=== PATIENT | male | born 1980 | race Caucasian/White ===

== ENCOUNTER 2020-08-05 20:44 | Inpatient (IN) | payer OTHER, SELFPAY ==
[2020-08-05 21:39] LABS: Absolute Lymphocytes (CBC) 2.6 K/uL (0.7-4.9); Basophils % 0.8 % (0-1.3); Hematocrit 44.9 % (39.6-49.0); Lymphocytes % 31.7 % (15.3-44.8); MPV 7.4 fL (7.6-11.3); RBC Red Blood Cell Count 5.13 M/uL (4.33-5.43)
[2020-08-05 21:47] LABS: Protime INR 0.87
[2020-08-05] MEDS ORDERED: NA CHLORIDE 0.9% 1,000 ML ONE (21:54)
[2020-08-05 22:07] LABS: ALT/SGPT 120 U/L (12-78); AST/SGOT 77 U/L (15-37); Albumin 3.3 g/dL (3.4-5.0); Alkaline Phosphatase 70 U/L (45-117); BUN Blood Urea Nitrogen 5 mg/dL (7-18); Bicarbonate 30 mmol/L (21-32); Bilirubin Direct < 0.1 mg/dL (0-0.2); Bilirubin Total 0.2 mg/dL (0.2-1.0); Glucose Level 98 mg/dL (74-106); Potassium 3.5 mmol/L (3.5-5.1); Protein, Total 7.2 g/dL (6.4-8.2); Sodium Level 143 mmol/L (136-145)
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
--- NOTE | 2020-08-05 22:34 | EDPHYS ---
Physician Documentation [facility] Name: Roscoe Mckeon Age: 39 yrs Sex: Male : 1980 Arrival Date: 08/05/2020 Time: 20:45 Bed 7 Private MD: NELSON Physician Krishan Horner HPI: 08/05 22:17 This 39 yrs old Male presents to ER via Ambulatory with complaints of Psych wu Problem. 22:17 The patient presents to the emergency department with depression, a history of wu substance abuse. Onset: The symptoms/episode began/occurred just prior to arrival. Past psychiatric history: Prior diagnosis: depression. Associated signs and symptoms: The patient has no apparent associated signs or symptoms. Severity of symptoms: At their worst the symptoms were mild in the emergency department the symptoms are unchanged. The patient has not experienced similar symptoms in the past. Historical: - Allergies: 20:57 No Known Allergies; ll1 - PMHx: 20:57 head trauma; ll1 21:07 aphasia; ll1 - PSHx: 20:57 None; ll1 - Immunization history:: Flu vaccine is up to date. - Social history:: Smoking status: Patient reports the use of cigarette tobacco products, smokes one-half pack cigarettes per day. - Family history:: not pertinent. ROS: 22:17 Constitutional: Negative for fever, chills, and weight loss, Eyes: Negative for injury, wu pain, redness, and discharge, ENT: Negative for injury, pain, and discharge, Neck: Negative for injury, pain, and swelling, Cardiovascular: Negative for chest pain, palpitations, and edema, Respiratory: Negative for shortness of breath, cough, wheezing, and pleuritic chest pain, Abdomen/GI: Negative for abdominal pain, nausea, vomiting, diarrhea, and constipation, Back: Negative for injury and pain, : Negative for injury, bleeding, discharge, and swelling, MS/Extremity: Negative for injury and deformity, Skin: Negative for injury, rash, and discoloration, Allergy/Immunology: Negative for hives, rash, and allergies, Endocrine: Negative for neck swelling, polydipsia, polyuria, polyphagia, and marked weight changes, Hematologic/Lymphatic: Negative for swollen nodes, abnormal bleeding, and unusual bruising. 22:17 Neuro: Positive for seizure activity. 22:17 Psych: Positive for depression, suicidal ideation. Exam: 22:17 Constitutional: This is a well developed, well nourished patient who is awake, alert, wu and in no acute distress. Head/Face: Normocephalic, atraumatic. Eyes: Pupils equal round and reactive to light, extra-ocular motions intact. Lids and lashes normal. Conjunctiva and sclera are non-icteric and not injected. Cornea within normal limits. Periorbital areas with no swelling, redness, or edema. ENT: Nares patent. No nasal discharge, no septal abnormalities noted. Tympanic membranes are normal and external auditory canals are clear. Oropharynx with no redness, swelling, or masses, exudates, or evidence of obstruction, uvula midline. Mucous membranes moist. Neck: Trachea midline, no thyromegaly or masses palpated, and no cervical lymphadenopathy. Supple, full range of motion without nuchal rigidity, or vertebral point tenderness. No Meningismus. Chest/axilla: Normal chest wall appearance and motion. Nontender with no deformity. No lesions are appreciated. Cardiovascular: Regular rate and rhythm with a normal S1 and S2. No gallops, murmurs, or rubs. Normal PMI, no JVD. No pulse deficits. Respiratory: Lungs have equal breath sounds bilaterally, clear to auscultation and percussion. No rales, rhonchi or wheezes noted. No increased work of breathing, no retractions or nasal flaring. Abdomen/GI: Soft, non-tender, with normal bowel sounds. No distension or tympany. No guarding or rebound. No evidence of tenderness throughout. Back: No spinal tenderness. No costovertebral tenderness. Full range of motion. Male : Normal genitalia with no discharge or lesions. Skin: Warm, dry with normal turgor. Normal color with no rashes, no lesions, and no evidence of cellulitis. MS/ Extremity: Pulses equal, no cyanosis. Neurovascular intact. Full, normal range of motion. Psych: Awake, alert, with orientation to person, place and time. Behavior, mood, and affect are within normal limits. 22:17 Neuro: Orientation: is normal, appropriate for stated age, no acute changes, Mentation: is normal, appropriate for stated age, no acute changes, Memory: is normal, appropriate for stated age, no acute changes, seizure activity, grand mal type is displayed, in er out of meds x 2 weeks, no post ictal state. Vital Signs: 20:55 BP 143 / 107; Pulse 110; Resp 18; Temp 98.3; Pulse Ox 100% ; Height 6 ft. 2 in. (187.96 ll1 cm); Pain 0/10; 22:15 BP 139 / 87; Pulse 98; Resp 22; Pulse Ox 95% on R/A; jb4 MDM: 21:00 Patient medically screened. wu 21:00 Patient medically screened. wu 22:20 Differential diagnosis: drug withdrawal. acute psychotic break, depression. Data wu reviewed: vital signs, nurses notes, lab test result(s), EKG, radiologic studies, CT scan, plain films. Data interpreted: desk monitor: rate is 110 beats/min, rhythm is regular, Pulse oximetry: on room air. Test interpretation: by ED physician or midlevel provider: ECG, plain radiologic studies. Counseling: I had a detailed discussion with the patient and/or guardian regarding: the historical points, exam findings, and any diagnostic results supporting the discharge/admit diagnosis, lab results, radiology results. 08/05 21:01 Order name: Acetaminophen; Complete Time: 22:16 [facility] 08/05 21:01 Order name: Basic Metabolic Panel; Complete Time: 22:16 [facility] 08/05 21:01 Order name: CBC with Diff; Complete Time: 22:16 [facility] 08/05 21:01 Order name: ETOH Level; Complete Time: 22:16 [facility] 08/05 21:01 Order name: Hepatic Function; Complete Time: 22:16 [facility] 08/05 21:01 Order name: PT-INR; Complete Time: 22:16 [facility] 08/05 21:01 Order name: Ptt, Activated; Complete Time: 22:16 [facility] 08/05 21:01 Order name: Salicylate; Complete Time: 22:16 [facility] 08/05 21:01 Order name: Urine Drug Screen [facility] 08/05 23:12 Order name: Comprehensive Metabolic Panel [facility] 08/05 23:12 Order name: Comprehensive Metabolic Panel [facility] 08/05 23:12 Order name: CBC with Automated Diff [facility] 08/05 23:12 Order name: CBC with Automated Diff [facility] 08/05 23:37 Order name: COVID-19 : Document "Date of Symptom Onset" if Symptomatic. [email or web address] 08/05 21:01 Order name: EKG; Complete Time: 21:02 [facility] 08/05 21:01 Order name: EKG - Nurse/Tech; Complete Time: 22:37 [facility] 08/05 21:01 Order name: IV Saline Lock; Complete Time: 22:37 [facility] 08/05 21:01 Order name: Labs collected and sent; Complete Time: 22:37 [facility] 08/05 21:01 Order name: Urine Dipstick-Ancillary (obtain specimen); Complete Time: 22:37 [facility] 08/05 22:17 Order name: Seizure Precautions; Complete Time: 22:19 [facility] 08/05 22:21 Order name: CT Head Brain wo Cont [facility] 08/05 23:12 Order name: CONS Pharmacy Consult; Complete Time: 08:02 EDMS 08/05 23:12 Order name: Regular; Complete Time: 08:02 [facility]VA 08/06 00:45 Order name: Urine Dipstick--Ancillary (enter results) 2 08/06 00:50 Order name: Urine Dipstick-Ancillary EDMS 08/06 02:40 Order name: SARS-COV-2 RT PCR EDMS Administered Medications: 21:45 Drug: NS 0.9% 1000 ml Route: IV; Rate: 1 bolus; Site: right antecubital; jb4 22:45 Follow up: Response: No adverse reaction; IV Status: Completed infusion; IV Intake: jb4 1000ml 22:30 Drug: Ativan 1 mg Route: IVP; Site: right antecubital; jb4 23:00 Follow up: Response: No adverse reaction; Marked relief of symptoms jb4 22:30 Drug: Fosphenytoin 1 grams Route: IVPB; Site: right antecubital; jb4 22:45 Follow up: Response: No adverse reaction; IV Status: Completed infusion; IV Intake: [id number] 23:15 Drug: Thiamine 100 mg Route: IV; Rate: bolus; Site: right antecubital; jb4 23:20 Follow up: IV Status: Completed infusion; IV Intake: 10ml jb4 Disposition: 08/05/20 22:34 Hospitalization ordered by Adalberto Gilliam for Observation. Preliminary diagnosis are Major depressive disorder, recurrent, Aphasia - from remote [facility], Alcohol abuse with intoxication, Epilepsy and recurrent seizures. - Bed requested for Telemetry/MedSurg (Inpatient). - Status is Observation. sv - Condition is Fair. - Problem is new. - Symptoms have improved. Signatures: Dispatcher [employer] Preeti Frias RN HARJINDER sv Virginia Reyna RN Krishan Bernard MD MD cha Bryson, James RN RN jb4 Anders Maya RN RN ll1 Corrections: (The following items were deleted from the chart) 23:47 22:34 Hospitalization Ordered by Adalberto Gilliam MD for Observation. Preliminary diagnosis is Major depressive disorder, recurrent; Aphasia - from remote [facility]; Alcohol abuse with intoxication; Epilepsy and recurrent seizures. Bed requested for Telemetry/MedSurg (observation). Status is Observation. Condition is Fair. Problem is new. Symptoms have improved. [facility] 08/06 16:06 08/05 23:47 08/05/2020 22:34 Hospitalization Ordered by Adalberto Gilliam MD for sv Observation. Preliminary diagnosis is Major depressive disorder, recurrent; Aphasia - from remote [facility]; Alcohol abuse with intoxication; Epilepsy and recurrent seizures. Bed requested for [facility] ER HOLD. Status is Observation. Condition is Fair. Problem is new. Symptoms have improved. 08/06 16:59 16:06 08/05/2020 22:34 Hospitalization Ordered by Adalberto Gilliam MD for Observation. sv Preliminary diagnosis is Major depressive disorder, recurrent; Aphasia - from remote [facility]; Alcohol abuse with intoxication; Epilepsy and recurrent seizures. Bed requested for Telemetry/MedSurg (Inpatient). Status is Observation. Condition is Fair. Problem is new. Symptoms have improved. sv
[2020-08-05] MEDS ORDERED: LORazepam 2 MG/ML VIAL ONE (22:36)
[2020-08-05] MEDS ORDERED: FOSPHENYTOIN PE 500 MG/10 ML VIAL ONE (22:37)
[2020-08-05] MEDS ORDERED: NA CHLORIDE 0.9% 50 ML ONE (22:38)
[2020-08-05] MEDS ORDERED: ACETAMINOPHEN 500 MG TAB PO PRN (23:10)
[2020-08-05] MEDS ORDERED: ONDANSETRON 4 MG/2 ML VIAL IV PRN (23:10)
[2020-08-05] MEDS ORDERED: THIAMINE 200 MG/2 ML INJ ONE (23:12)
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
[2020-08-05] MEDS: levETIRAcetam 500 MG in NA CHLORIDE 0.9% 100 ML IV SCH (23:14)
[2020-08-05] MEDS: RISPERIDONE 1 MG TABLET PO SCH (23:14)
[2020-08-05] MEDS ORDERED: LORazepam 2 MG/ML VIAL IV PRN (23:15)
[2020-08-05] MEDS: NA CHLORIDE 0.9% 1,000 ML IV SCH (23:45)
[2020-08-06 00:04] VITALS: BMI 21.7
[2020-08-06] MEDS ORDERED: LEVETIRACETAM 500 MG/5 ML VIAL IV ONE (00:36)
[2020-08-06] MEDS ORDERED: NA CHLORIDE 0.9% 1,000 ML ONE (00:36)
[2020-08-06] MEDS ORDERED: NA CHLORIDE 0.9% 250 ML ONE (00:36)
[2020-08-06] MEDS ORDERED: RISPERIDONE 1 MG TABLET ONE (00:40)
[2020-08-06 00:50] LABS: Urine Blood NEGATIVE (NEG); Urine Glucose NEGATIVE (NEG); Urine Protein NEGATIVE (NEG); Urine Specific Gravity 1.015 (1.005-1.030)
[2020-08-06 01:04] LABS: Barbiturates NEGATIVE (NEGATIVE); Benzodiazepines NEGATIVE (NEGATIVE); Cocaine NEGATIVE (NEGATIVE); METHAMPHETAM POSITIVE (NEGATIVE); Methadone NEGATIVE (NEGATIVE); Opiates NEGATIVE (NEGATIVE); Phencyclidine NEGATIVE (NEGATIVE); THC Cannibis NEGATIVE (NEGATIVE)
[2020-08-06] MEDS ORDERED: LORazepam 2 MG/ML VIAL ONE (01:28)
[2020-08-06] MEDS ORDERED: ZIPRASIDONE MESYLA 20 MG/VIAL IM ONE ×2 (01:33→01:38)
[2020-08-06] MEDS ORDERED: WATER FOR INJ,STERILE 10 ML IM PRN (01:33)
[2020-08-06] MEDS ORDERED: WATER FOR INJ,STERILE 10 ML ONE (01:39)
[2020-08-06 07:14] LABS: Absolute Lymphocytes (CBC) 2.3 K/uL (0.7-4.9); Basophils % 0.9 % (0-1.3); Hematocrit 43.3 % (39.6-49.0); Lymphocytes % 35.5 % (15.3-44.8); MPV 7.6 fL (7.6-11.3); RBC Red Blood Cell Count 4.91 M/uL (4.33-5.43)
[2020-08-06 07:26] LABS: ALT/SGPT 108 U/L (12-78); AST/SGOT 67 U/L (15-37); Albumin 2.9 g/dL (3.4-5.0); Alkaline Phosphatase 60 U/L (45-117); BUN Blood Urea Nitrogen 6 mg/dL (7-18); Bicarbonate 32 mmol/L (21-32); Bilirubin Total 0.4 mg/dL (0.2-1.0); Glucose Level 89 mg/dL (74-106); Potassium 4.4 mmol/L (3.5-5.1); Protein, Total 6.2 g/dL (6.4-8.2); Sodium Level 144 mmol/L (136-145)
[2020-08-06] MEDS: levETIRAcetam 500 MG in NA CHLORIDE 0.9% 100 ML IV SCH ×2 (10:15→20:42)
[2020-08-06] MEDS: NA CHLORIDE 0.9% 1,000 ML IV SCH ×2 (10:15→19:09)
--- NOTE | 2020-08-06 12:58 | P.PN ---
Subjective Date of Service: 08/06/20 Chief Complaint: Seizure Patient is somnolent. He answers yes to every question. No fever. No seizures since admission. Physical Examination - Vital Signs Temperature: 98 F Blood Pressure: 107/72 Pulse: 66 Respirations: 16 Pulse Ox (%): 97 - Physical Exam General: In no apparent distress, Other (Somnolent) HEENT: PERRLA, EOMI, Sclerae nonicteric Neck: Supple, JVD not distended Respiratory: Clear to auscultation bilaterally, Normal air movement Cardiovascular: No edema, Regular rate/rhythm, Normal S1 S2 Gastrointestinal: Soft and benign, Non-distended, No tenderness Musculoskeletal: No swelling, No tenderness Integumentary: No rashes, No erythema Neurological: Other (Somnolent, no focal motor deficit.) - Studies Laboratory Data (last 24 hrs) 08/05/20 21:28: PT 10.2, INR 0.87, APTT 25.7 08/05/20 21:28: WBC 8.20, Hgb 15.3, Hct 44.9, Plt Count 201 08/05/20 21:28: Sodium 143, Potassium 3.5, BUN 5 L, Creatinine 0.91, Glucose 98, Total Bilirubin 0.2, AST 77 H, ALT 120 H, Alkaline Phosphatase 70 Assessment And Plan - Current Problems (Diagnosis) (1) Seizure Current Visit: Yes Status: Acute (2) History of traumatic brain injury Current Visit: Yes Status: Acute (3) Metabolic encephalopathy Current Visit: Yes Status: Acute (4) Depression Current Visit: Yes Status: Acute (5) Noncompliance with medication regimen Current Visit: Yes Status: Acute - Plan Patient given a loading dose of phenytoin in the ED. Continue Keppra. Ativan IV p.r.n. for breakthrough seizures. Supportive measures with IV hydration. Risperidone Geodon IM p.r.n. There is a concern for suicidal ideation. Psych consult once clinically stable.
[2020-08-06] MEDS: RISPERIDONE 1 MG TABLET PO SCH (20:42)
[2020-08-07] MEDS: MORPHINE 2 MG/ML SYR IV PRN ×2 (04:16→13:02)
[2020-08-07] MEDS: NA CHLORIDE 0.9% 1,000 ML IV SCH (04:21)
[2020-08-07 06:18] LABS: Absolute Lymphocytes (CBC) 2.1 K/uL (0.7-4.9); Basophils % 0.9 % (0-1.3); Hematocrit 44.3 % (39.6-49.0); Lymphocytes % 28.2 % (15.3-44.8)
[2020-08-07 06:32] LABS: BUN Blood Urea Nitrogen 8 mg/dL (7-18); Bicarbonate 29 mmol/L (21-32); Glucose Level 84 mg/dL (74-106); Potassium 4.5 mmol/L (3.5-5.1); Sodium Level 142 mmol/L (136-145)
--- NOTE | 2020-08-07 09:42 | RAD REPORT ---
EXAM DESCRIPTION: CT - Head Brain Wo Cont - 08/06/2020 3:27 am CLINICAL HISTORY: 39-year-old male status post seizure. COMPARISON: None. TECHNIQUE: CT brain without contrast. This exam was performed according to our departmental dose opt imization program which includes use of automated exposure control, adjustment of the mA and/or kV ac cording to patient size and/or use of iterative reconstruction technique. FINDINGS: Multiple foci of hypoattenuation identified at the level of the bilateral inferior frontal lobe, RIGHT greater than LEFT anterior temporal lobes, LEFT frontal parietal lobes compatible with e ncephalomalacia and may reflect sequela of prior infarction, trauma and/or surgery. The ventricles, sulci, and cisterns are symmetric and unremarkable. The angel-white matter different iation is preserved. There is no mass effect, midline shift, intra- or extra-axial fluid collection /acute hemorrhage. The osseous structures reveal postoperative changes of the calvarium, otherwise unremarkable. The paranasal sinuses and mastoid air cells are clear. IMPRESSION: 1. No acute intracranial abnormalities. 2. CT is insensitive for early evaluation of acute stroke. If there is clinical concern for acute ischemia, an MRI may be considered. Electronically signed by: Tayler Scanlon MD 08/05/2020 11:15 PM [facility] Due to temporary technical issues with the PACS/Fluency reporting system, reports are being signed by the in house radiologist without review as a courtesy to ensure prompt reporting. The interpreting r adiologist is fully responsible for the content of the report.
[2020-08-07] MEDS: levETIRAcetam 500 MG in NA CHLORIDE 0.9% 100 ML IV SCH (10:23)
[2020-08-07 11:43] VITALS: O2SAT 98
[2020-08-07 17:07] VITALS: BP 140/87; TEMP 97
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
== END 2020-08-07 15:34 | disposition left against medical advice (07) | DRG 100 ==
LOC: ER 20:44 → ERHOLD 23:10 → OBSVTOIN 08-06 13:37 → 2ND 08-06 16:42
PROVIDERS: ADMIT Family Medicine; ATTEND Internal Medicine
DX: G40.909 Epilepsy, unspecified, not intractable, without status epilepticus (principal); G93.41 Metabolic encephalopathy; R47.01 Aphasia; F17.210 Nicotine dependence, cigarettes, uncomplicated; F32.9 Major depressive disorder, single episode, unspecified; Z87.820 Personal history of traumatic brain injury; Z79.899 Other long term (current) drug therapy; Z91.19 Patient's noncompliance with other medical treatment and regimen; Z20.822 Contact with and (suspected) exposure to COVID-19
CPT/HCPCS: 36415; 70450; 80048; 80053; 80076; 80307; 80320; 80329; 81003; 85025; 85610; 85730; 96361; 96374; 96375; 99285; J1953; J2270; J3411; J3486; J7030; J7050; Q2009; U0003